=== PATIENT | female | born 1940 | race Caucasian/White ===

== ENCOUNTER → 2021-01-29 07:57 | Outpatient (CLI) | payer OTHER, SELFPAY ==
[2021-01-29 09:09] LABS: COVID19 -Nasal RAPID Negative (Negative)
--- NOTE | 2021-01-30 07:46 | DI.NM.S_ITS ---
DATE OF SERVICE: 01/29/2021 PROCEDURE PERFORMED: Exercise treadmill stress and rest myocardial perfusion imaging with gating to assess ejection fraction and regional wall motion. ORDERING PROVIDER: Dr. Dennys You. INDICATIONS: The patient is an 80-year-old female with atrial fibrillation and pacemaker with a history of chest discomfort. EXERCISE TREADMILL TESTING: The patient was able to exercise for 3 minutes and 32 seconds on a standard Duncan protocol, suggesting moderately impaired exercise capacity with an OLY of +25%. She had a normal heart rate and blood pressure response to exercise, achieving a maximum heart rate of 145 BPM (104% of her predicted maximum). She had no chest discomfort. Her resting ECG is normal with subtle ST-segment abnormalities that become slightly accentuated with stress, but remain nonspecific. There were no arrhythmias. She was in sinus rhythm throughout. At 2 minutes and 51 seconds of exercise at a heart rate of 122 BMP, 26.0 mCi of technetium-99m Myoview was injected and the patient was imaged 15 minutes later using a gated SPECT acquisition protocol. Earlier in the day at rest, she had been injected with 11.1 mCi of technetium-99m Myoview and was imaged 30 minutes later, again using a gated SPECT acquisition protocol. FINDINGS: 1. Raw data: There is fairly good myocardial tracer uptake with mild breast shadows noted. Lung/heart ratio was normal at 0.33 with a normal TID ratio of 1.00. 2. Quantitated gated SPECT: Post-stress ejection fraction is estimated at 82% without any focal wall motion abnormality and specifically the septum appears to have normal contractility. The resting ejection fraction is 86% with an end- diastolic volume of 78 mL. 3. Myocardial perfusion imaging: Post-stress supine images show a fairly normal perfusion pattern although with a small, subtle defect in the mid anterior septum that improves, although does not completely resolve, with prone imaging. There are no other perfusion defects. The resting images show an identical perfusion pattern without any areas of improvement. IMPRESSION: 1. Normal myocardial perfusion study. 2. There is a small, subtle, fixed mid septal defect that nearly resolves on prone imaging, most consistent with breast attenuation artifact. There is no compelling evidence for any myocardial ischemia or previous myocardial infarction. 3. Normal left ventricular systolic function without any focal wall motion abnormality. 4. Moderately impaired exercise capacity without angina or ECG evidence of ischemia. She was in sinus rhythm throughout. Christina Lobo - RS/dona/[place] doc#: [id number]/job#: [id number] dd: 01/29/2021 17:01:00 dt: 01/29/2021 17:40:00 DICTATING MD/COPIES TO: Guru Barrientos MD; Kimberly You MD COPIES MNE: [facility]IS;
== END ==
PROVIDERS: Referring Provider Internal Medicine Cardiovascular Disease; Visit Provider Internal Medicine Cardiovascular Disease
DX: R07.89 Other chest pain (principal); I48.91 Unspecified atrial fibrillation; I25.10 Atherosclerotic heart disease of native coronary artery without angina pectoris; Z95.0 Presence of cardiac pacemaker
CPT/HCPCS: 78452; 87635; 93017; A9502

== ENCOUNTER → 2022-08-25 09:51 | Outpatient (CLI) | payer OTHER, SELFPAY ==
--- NOTE | 2022-08-25 | DI.RAD.S_ITS ---
PROCEDURE: XR CHEST 2V INDICATIONS: CHEST PAIN TECHNIQUE: 2 views of the chest were acquired. COMPARISON: None. FINDINGS: Surgical changes and devices: Pacemaker. Lungs and pleura: Lungs are clear. No pleural effusions or pneumothorax. Mediastinum: Mediastinal contours are normal. Heart size is normal. Bones and chest wall: No suspicious bony abnormalities. Soft tissues appear unremarkable. IMPRESSION: No acute pulmonary process. Dictated by: Shannon Guerrero M.D. on 08/25/2022 at 13:07 Approved by: Shannon Guerrero M.D. on 08/25/2022 at 13:08
== END ==
PROVIDERS: PCP Family Medicine; Referring Provider Family Medicine; Visit Provider Family Medicine
DX: R07.9 Chest pain, unspecified (principal); Z95.0 Presence of cardiac pacemaker
CPT/HCPCS: 71046

== ENCOUNTER → 2022-12-22 08:46 | Outpatient (CLI) | payer OTHER, SELFPAY ==
--- NOTE | 2022-12-22 08:52 | DI.RAD.S_ITS ---
PROCEDURE: XR LUMBAR SPINE 2-3V INDICATIONS: DORSALGIA/CHEST PAIN TECHNIQUE: 3 views of the lumbar spine were acquired. COMPARISON: None. FINDINGS: Bones: 5 [id number] vertebrae are present. There is normal bony alignment. No vertebral body compression fractures. No suspicious bony lesions. Normal bone mineralization present. Degenerative disc space narrowing hypertrophic facet joints noted throughout the exam particularly lower lumbar spine associated with grade 1 anterior spondylolisthesis at L4-5 Soft tissues: Surgical clips noted in the right upper quadrant. Calcified uterine fibroid present. Atherosclerotic vascular calcification abdominal aorta present. IMPRESSION: Degenerative disc disease and arthropathy associated with grade 1 anterior spondylolisthesis at L4-5 Approved by: James Morales M.D. on 12/22/2022 at 11:45
--- NOTE | 2022-12-22 08:52 | DI.RAD.S_ITS ---
PROCEDURE: XR RIBS BI 3V INDICATIONS: DORSALGIA/CHEST PAIN TECHNIQUE: Two views each of the right and left ribs along with a single view of the chest. COMPARISON: [facility], , XR CHEST 2V, 08/25/2022, 9:57. FINDINGS: Surgical changes and devices: A cardiac pacemaker is seen with pulse generator in the left chest. Right upper quadrant cholecystectomy clips. Bones and chest wall: No acute displaced rib fracture. No suspicious bony lesions. Overlying soft tissues appear unremarkable. Degenerative changes are seen in the spine. Lungs and pleura: The visualized lung appears clear. No pleural effusions or pneumothorax are visible. IMPRESSION: No acute displaced rib fracture. No pleural effusion or pneumothorax. Approved by: Theodore Pickering M.D. on 12/22/2022 at 11:26
--- NOTE | 2022-12-22 08:52 | DI.RAD.S_ITS ---
PROCEDURE: XR THORACIC SPINE 3V INDICATIONS: DORSALGIA/CHEST PAIN TECHNIQUE: 3 views of the thoracic spine were acquired. COMPARISON: None. FINDINGS: Bones: No fractures or dislocations. No suspicious bony lesions. 12 pairs of ribs are noted, and appear intact where visualized. Disc space narrowing anterior osteophytes noted in the mid cervical spine Soft tissues: No paravertebral stripe thickening. Atherosclerotic vascular calcification noted in the aortic arch. Dual-chamber left-sided pacemaker noted IMPRESSION: Multilevel degenerative disc disease and arthropathy Approved by: James Morales M.D. on 12/22/2022 at 11:44
== END ==
PROVIDERS: PCP Family Medicine; Referring Provider Family Medicine; Visit Provider Family Medicine
DX: M51.34 Other intervertebral disc degeneration, thoracic region (principal); M47.814 Spondylosis without myelopathy or radiculopathy, thoracic region; M51.36 Other intervertebral disc degeneration, lumbar region; M47.816 Spondylosis without myelopathy or radiculopathy, lumbar region; M43.16 Spondylolisthesis, lumbar region; R07.9 Chest pain, unspecified; M54.9 Dorsalgia, unspecified
CPT/HCPCS: 71110; 72072; 72100

== ENCOUNTER → 2023-07-26 09:53 | Outpatient (CLI) | payer OTHER, SELFPAY ==
--- NOTE | 2023-07-26 | DI.RAD.S_ITS ---
PROCEDURE: XR LUMBAR SPINE 2-3V INDICATIONS: Cervicalgia TECHNIQUE: 3 views of the lumbar spine were acquired. COMPARISON: [facility], CR, XR LUMBAR SPINE 2-3V, 12/22/2022, 9:00. FINDINGS: Bones: 5 [id number] vertebrae are present. There is normal bony alignment. No vertebral body compression fractures. No suspicious bony lesions. Disc space narrowing and hypertrophic facet joints noted throughout the exam particularly upper lumbar spine. Grade 1 anterior spondylolisthesis L4-5 Soft tissues: Atherosclerotic calcification in the abdominal aorta noted without evidence of aneurysm. Surgical clips noted in the right upper quadrant. Calcified uterine fibroid IMPRESSION: Stable degenerative disc disease and arthropathy Approved by: James Morales M.D. on 07/26/2023 at 11:14
== END ==
PROVIDERS: PCP Family Medicine; Referring Provider Family Medicine; Visit Provider Family Medicine
DX: M50.30 Other cervical disc degeneration, unspecified cervical region (principal); M47.812 Spondylosis without myelopathy or radiculopathy, cervical region; D25.9 Leiomyoma of uterus, unspecified
CPT/HCPCS: 72100

== ENCOUNTER 2024-12-19 15:26 | Inpatient (IN) | payer OTHER, SELFPAY ==
[2024-12-19] VITALS (49 sets, daily range): BP systolic 92–155; BP diastolic 53–92; PULSE 83–142; RESP 12–51; TEMP 36.3–37.3; O2SAT 92–98
--- NOTE | 2024-12-19 | DI.RAD.S_ITS ---
PROCEDURE: XR CHEST 1V INDICATIONS: LEFT CHEST TUBE PLACEMENT TECHNIQUE: One view of the chest was acquired. COMPARISON: [facility], CR, XR CHEST 1V, 12/19/2024, 15:38. FINDINGS: Surgical changes and devices: Left chest tube is in place. Distal tip projects medially. Left cardiac pacemaker device. Cholecystectomy clips. Lungs and pleura: Right lung appears clear. No pleural effusion. Persistent small-moderate sized left pneumothorax. Mediastinum: Mediastinal contours appear stable. Heart size is normal. No midline shift of structures. Bones and chest wall: No suspicious bony lesions. Overlying soft tissues appear unremarkable. Left chest wall subcutaneous soft tissue emphysema. IMPRESSION: Interval placement of left thoracostomy tube with persistent small-moderate sized left pneumothorax. Dictated by: Aldo Bunn M.D. on 12/19/2024 at 18:58 Approved by: Aldo Bunn M.D. on 12/19/2024 at 19:00
--- NOTE | 2024-12-19 15:30 | DI.RAD.S_ITS ---
PROCEDURE: XR CHEST 1V INDICATIONS: chest pain TECHNIQUE: One view of the chest was acquired. COMPARISON: [facility], CR, XR CHEST 2V, 08/25/2022, 9:57. FINDINGS: Surgical changes and devices: Left chest wall pacemaker leads are in the region of right atrium and right ventricle.. Lungs and pleura: Large left-sided pneumothorax is seen measures approximately 5.1 cm in craniocaudal dimension. No pleural effusion. Right lung is clear. Mediastinum: Mediastinal contours appear normal. Heart size is normal. Bones and chest wall: No suspicious bony lesions. Overlying soft tissues appear unremarkable. IMPRESSION: Large left pneumothorax as above. Findings were reported to ordering ER physician at the time of dictation. Dictated by: Oscar Landry M.D. on 12/19/2024 at 16:14 Approved by: Oscar Landry M.D. on 12/19/2024 at 16:17
--- NOTE | 2024-12-19 15:38 | EKG_ITS ---
[facility] [address] [place] [address] Test Date: 2024-12-19 Pat Name: Christina Lobo Department: [facility] Room: Gender: Female Water Quality Analyst: LUIS F : 1940 Requested By: Order Number: [id number] Reading MD: Buster Adame Measurements Intervals [place] Rate: 122 P: NC: QRS: 38 QRSD: 78 T: 24 QT: 274 QTc: 390 Interpretive Statements Atrial fibrillation with rapid ventricular response Nonspecific ST abnormality Electronically Signed On 12-19-2024 20:04:59 PST by Buster Adame
--- NOTE | 2024-12-19 15:59 | PC.NURSE ---
patient was getting pacer interogated and went to the bathroom and beared down to have a BM. then complained of nausea. was placed back on the monitor and was found to in Afib. She is slightly nauseated.
[2024-12-19 16:07] LABS: INR 1.3 (0.9-1.3); Prothrombin Time 15.1 SECONDS (9.4-12.5)
[2024-12-19 16:10] LABS: Add Manual Diff / Slide Review NO; Basophils Absolute Auto 100 /uL (0-100); Basophils Percent Auto 0.8 % (0-2); Eosinophils Absolute Auto 100 /uL (0-450); Eosinophils Percent Auto 1.3 % (2-4); Hematocrit 41.1 % (36-46); Hemoglobin 13.7 g/dL (12.0-16.0); Lymphocytes Absolute Auto 900 /uL (1100-4500); Mean Corpuscular HGB Conc 33.4 % (30-36); Mean Corpuscular Hemoglobin 35.1 PG (26-34); Monocytes Absolute Auto 600 /uL (0-900); Monocytes Percent Auto 7.9 % (3-14); Neutrophils Absolute Auto 5700 /uL (1500-7000); PTT Partial Thromboplastin Tim 72 SECONDS (25.1-36.5); Platelet Count 287 X10^3/uL (150-400); Red Blood Cell Count 3.92 X10^6/uL (4.0-5.2); White Blood Cell Count 7.3 X10^3/uL (4.5-11.0)
[2024-12-19 16:16] LABS: Alanine Aminotransferase 32 IU/L (<35); Albumin Globulin Ratio 1.5 (1.0-2.8); Alkaline Phosphatase 71 U/L (38-126); Aspartate Aminotransferase 45 IU/L (14-36); BUN Creatinine Ratio 11.8 (6-22); Bilirubin Total 0.9 mg/dL (0.2-1.3); Blood Urea Nitrogen 11 mg/dL (7-17); Carbon Dioxide 25 mmol/L (22-32); Chloride 99 mmol/L (98-107); Creatine Kinase 81 U/L (30-135); Estimated Glomerular Filt Rate > 60 mL/min (>60); Globulin 2.7 g/dL (1.7-4.1); Glucose 126 mg/dL (80-110); HEMOLYSIS 24 (0-50); Lipase 67 U/L (23-300); Magnesium 1.6 mg/dL (1.6-2.3); Potassium 4.2 mmol/L (3.4-5.1); Sodium 131 mmol/L (137-145); Total Protein 6.7 g/dL (6.3-8.2)
--- NOTE | 2024-12-19 16:16 | ED_ITS ---
HPI - Arrhythmia/Palpitations <Gertrudis Nolan, - Last Filed: 12/24/24 00:24> General Chief Complaint: Arrhythmia/Palpitations Stated Complaint: is in Afib, brought by clinic RN Time Seen by Provider: 12/19/24 16:16 Source: patient Mode of arrival: Ambulatory History of Present Illness HPI narrative: Patient is a 84-year-old female history of atrial fibrillation on Pradaxa pacemaker presenting today with some left-sided chest pain. She was found to be in atrial fibrillation with RVR. She he is currently being treated with for pneumonia with amoxicillin and doxycycline. Her pacemaker company called her today saying that she had trouble with her pacemaker leads. She actually reports that 6 days ago she would severe left-sided chest pain. She would ambulance come she went to [facility] they did an x-ray which point she was diagnosed with a pneumonia. She denies any further chest pain Related Data Home Medications Medication Instructions Recorded Confirmed Centrum Silver Women See Rx Instructions .Route .COMPLEX 12/20/24 12/20/24 acetaminophen 325 mg tablet 1,500 mg PO BID 12/20/24 12/20/24 (Tylenol) amlodipine 10 mg tablet 10 mg DAILY 12/20/24 12/20/24 atorvastatin 40 mg tablet 40 mg DAILY 12/20/24 12/20/24 cholecalciferol (vitamin D3) 50 50 mcg PO DAILY 12/20/24 12/20/24 mcg (2,000 unit) tablet (Vitamin D3) clobetasol 0.05 % scalp solution See Rx Instructions .Route 12/20/24 12/20/24 .COMPLEX scalp dabigatran etexilate 150 mg capsule 150 mg PO BID 12/20/24 12/20/24 docusate sodium 100 mg capsule 250 mg PO BID 12/20/24 12/20/24 (Colace) famotidine 20 mg tablet 20 mg DAILY 12/20/24 12/20/24 folic acid 1 mg tablet 1 mg PO DAILY 12/20/24 12/20/24 hydralazine 50 mg tablet 50 mg 12/20/24 hydrocortisone 2.5 % lotion 1 applic topical BID PRN PSORAISIS 12/20/24 12/20/24 losartan 100 mg tablet 100 mg DAILY 12/20/24 12/20/24 melatonin 5 mg tablet 5 mg PO BEDTIME PRN SLEEP 12/20/24 12/20/24 metoprolol succinate 25 mg 25 mg PO DAILY 12/20/24 12/20/24 tablet,extended release 24 hr nitroglycerin 0.4 mg sublingual 0.4 mg sublingual Q5M PRN Chest 12/20/24 12/20/24 tablet Pain sertraline 25 mg tablet 25 mg DAILY 12/20/24 12/20/24 tramadol 50 mg tablet 50 mg PRN PRN Pain, Moderate 12/20/24 12/20/24 Allergies Allergy/AdvReac Type Severity Reaction Status Date / Time No Known Drug Allergies Allergy Verified 12/19/24 15:37 Patient History <Gertrudis Nolan DO - Last Filed: 12/24/24 00:24> Social History household members: none Smoking Status: Unknown if ever smoked Smoking Status: Unknown if ever smoked Exam <Gertrudis Nolan DO - Last Filed: 12/24/24 00:24> Initial Vital Signs Initial Vital Signs: Vital Signs Temperature 98.7 F 12/19/24 15:27 Pulse Rate 137 H 12/19/24 15:27 Respiratory Rate 25 H 12/19/24 15:27 Blood Pressure 131/92 H 12/19/24 15:27 Pulse Oximetry 93 12/19/24 15:27 Oxygen Delivery Method Room Air 12/19/24 15:27 GENERAL: Alert well-appearing pleasant 84-year-old female and in no acute distress. HEENT: Head atraumatic,EOMI, pupils reactive, face symmetric, moist mucous membranes CARDIOVASCULAR: Irregularly irregular no murmurs RESPIRATORY: No conversational dyspnea no wheezes rales or rhonchi possibly decreased breath sounds on the left side ABDOMEN: Soft, nontender. Normoactive bowel sounds all 4 quadrants. No guarding or rebound. EXTREMITIES: Normal range of motion, no clubbing or edema. Neurovascularly intact NEUROLOGICAL: Alert and oriented x4.Normal gait and speech. Cranial nerves II through XII grossly intact. SKIN: Warm, dry, no laceration, no petechiae, no rashes or lesions. <Jesica Fink MD - Last Filed: 12/20/24 03:08> Initial Vital Signs Initial Vital Signs: Vital Signs Temperature 98.7 F 12/19/24 15:27 Pulse Rate 137 H 12/19/24 15:27 Respiratory Rate 25 H 12/19/24 15:27 Blood Pressure 131/92 H 12/19/24 15:27 Pulse Oximetry 93 12/19/24 15:27 Oxygen Delivery Method Room Air 12/19/24 15:27 Procedures <Gertrudis Nolan DO - Last Filed: 12/24/24 00:24> Chest Tube Chest Tube 1: Chest Tube Location: left Size of Tube (cm): 28 Chest Tube Prep: Yes sterile drapes applied and other Local Anesthetic: lidocaine 1% and with epi Amount of anesthesia used (mL): 15 Incision Made With: #11 blade Post Procedure: sutured to skin and sterile dressing applied Tube Drainage: blood Amount of initial drainage (mL): 5 Post Procedure CXR?: Yes Patient Tolerated Procedure: Yes Complications: pain Procedural Sedation Indication: other (pneumothorax) IV Propofol dose (mg): 120 ED Sedation Level: Moderate (Concious) Patient Tolerated Procedure: Well and No complications Complications: hypoxia Interventions: Airway repositioned Course <DO Catalino Church Last Filed: 12/24/24 00:24> Orders Ordered: Discontinued Medications Acetaminophen (Acetaminophen 325 Mg Tablet) 650 mg PO Q6H PRN PRN Reason: Fever/Mild Pain (1-3) Hydrocodone Bitart/Acetaminophen (Hydrocodone/Acet 5/325 Tablet) 1 tab PO Q4H PRN PRN Reason: Pain, Moderate (4-6) Aspirin (Aspirin 81 Mg Chew Tab) 324 mg PO NOW ONE Stop: 12/19/24 15:31 Last Admin: 12/20/24 08:28 Dose: Not Given Documented By: ROBERT Hydromorphone HCl (Hydromorphone 1 Mg Inj) 1 mg IV NOW ONE Stop: 12/19/24 18:46 Last Admin: 12/19/24 18:47 Dose: 1 mg Documented By: ANGELIC Hydromorphone HCl (Hydromorphone 0.5 Mg Inj) 0.5 mg IV NOW ONE Stop: 12/19/24 20:09 Last Admin: 12/19/24 20:11 Dose: 0.5 mg Documented By: CHARLEEN Hydromorphone HCl (Hydromorphone 0.5 Mg Inj) 0.5 mg IV Q2H PRN PRN Reason: Pain, Severe (7-10) Last Admin: 12/19/24 23:40 Dose: 0.5 mg Documented By: Dextrose/Sodium Chloride (Dextrose 5%-0.45% Ns) 1,000 mls @ 100 mls/hr IV CONT SHAWN Last Admin: 12/20/24 09:04 Dose: 100 mls/hr Documented By: ROBERT Lidocaine/Epinephrine (Lidocaine 1% W/Epi 20ml) 1 ml SUBCUT NOW ONE Stop: 12/19/24 18:32 Last Admin: 12/19/24 18:34 Dose: 1 ml Documented By: ANGELIC Naloxone HCl (Naloxone 0.4 Mg/Ml Vial) 0.2 mg IV Q2MIN PRN PRN Reason: Opiate Reversal Ondansetron HCl (Ondansetron 4 Mg/2 Ml Inj) 4 mg IV Q8HR PRN PRN Reason: Nausea And Vomiting Last Admin: 12/19/24 23:40 Dose: 4 mg Documented By: Propofol (Propofol 200 Mg/20 Ml Vial) 70 mg 1 mg/kg (70 mg) IV NOW ONE Stop: 12/19/24 16:24 Last Admin: 12/19/24 18:14 Dose: 70 mg Documented By: ANGELIC Propofol (Propofol 200 Mg/20 Ml Vial) 50 mg IV NOW ONE Stop: 12/19/24 18:32 Last Admin: 12/19/24 18:32 Dose: 50 mg Documented By: ANGELIC Vital Signs Vital signs: Vital Signs - 8 hr 12/19/24 19:30 12/19/24 19:35 12/19/24 19:35 Pulse Rate 96 H 116 H Respiratory Rate 20 20 Blood Pressure 127/61 Pulse Oximetry 95 96 Oxygen Delivery Method Nasal Cannula Nasal Cannula Oxygen Flow Rate 2 2 12/19/24 19:45 12/19/24 19:45 12/19/24 20:00 Pulse Rate 92 H Respiratory Rate 17 Blood Pressure 129/58 L 135/62 Pulse Oximetry 95 Oxygen Delivery Method Nasal Cannula Oxygen Flow Rate 2 12/19/24 20:00 12/19/24 20:14 12/19/24 20:15 Pulse Rate 92 H 101 H Respiratory Rate 15 18 Blood Pressure 135/65 Pulse Oximetry 96 96 Oxygen Delivery Method Nasal Cannula Nasal Cannula Oxygen Flow Rate 2 2 12/19/24 20:15 12/19/24 20:30 12/19/24 20:30 Pulse Rate 92 H 114 H Respiratory Rate 22 12 Blood Pressure 116/58 L Pulse Oximetry 96 94 Oxygen Delivery Method Nasal Cannula Nasal Cannula Oxygen Flow Rate 2 2 12/19/24 20:45 12/19/24 20:45 12/19/24 21:00 Pulse Rate 112 H Respiratory Rate 20 Blood Pressure 127/60 136/59 L Pulse Oximetry 94 Oxygen Delivery Method Nasal Cannula Oxygen Flow Rate 2 12/19/24 21:00 12/19/24 21:15 12/19/24 21:15 Pulse Rate 124 H 91 H Respiratory Rate 14 14 Blood Pressure 134/60 Pulse Oximetry 94 94 Oxygen Delivery Method Nasal Cannula Nasal Cannula Oxygen Flow Rate 2 2 12/19/24 21:30 12/19/24 21:30 12/19/24 21:45 Pulse Rate 99 H Respiratory Rate 17 Blood Pressure 131/61 146/63 H Pulse Oximetry 93 Oxygen Delivery Method Nasal Cannula Oxygen Flow Rate 2 12/19/24 21:45 12/19/24 22:00 12/19/24 22:00 Pulse Rate 93 H 97 H Respiratory Rate 14 19 Blood Pressure 125/56 L Pulse Oximetry 93 94 Oxygen Delivery Method Nasal Cannula Nasal Cannula Oxygen Flow Rate 2 2 12/19/24 22:15 12/19/24 22:15 Pulse Rate 133 H Respiratory Rate 18 Blood Pressure 140/62 Pulse Oximetry 94 Oxygen Delivery Method Nasal Cannula Oxygen Flow Rate 2 <Jesica Fink MD - Last Filed: 12/20/24 03:08> Orders Ordered: Discontinued Medications Acetaminophen (Acetaminophen 325 Mg Tablet) 650 mg PO Q6H PRN PRN Reason: Fever/Mild Pain (1-3) Hydrocodone Bitart/Acetaminophen (Hydrocodone/Acet 5/325 Tablet) 1 tab PO Q4H PRN PRN Reason: Pain, Moderate (4-6) Aspirin (Aspirin 81 Mg Chew Tab) 324 mg PO NOW ONE Stop: 12/19/24 15:31 Last Admin: 12/20/24 08:28 Dose: Not Given Documented By: ROBERT Hydromorphone HCl (Hydromorphone 1 Mg Inj) 1 mg IV NOW ONE Stop: 12/19/24 18:46 Last Admin: 12/19/24 18:47 Dose: 1 mg Documented By: ANGELIC Hydromorphone HCl (Hydromorphone 0.5 Mg Inj) 0.5 mg IV NOW ONE Stop: 12/19/24 20:09 Last Admin: 12/19/24 20:11 Dose: 0.5 mg Documented By: CHARLEEN Hydromorphone HCl (Hydromorphone 0.5 Mg Inj) 0.5 mg IV Q2H PRN PRN Reason: Pain, Severe (7-10) Last Admin: 12/19/24 23:40 Dose: 0.5 mg Documented By: Dextrose/Sodium Chloride (Dextrose 5%-0.45% Ns) 1,000 mls @ 100 mls/hr IV CONT SHAWN Last Admin: 12/20/24 09:04 Dose: 100 mls/hr Documented By: ROBERT Lidocaine/Epinephrine (Lidocaine 1% W/Epi 20ml) 1 ml SUBCUT NOW ONE Stop: 12/19/24 18:32 Last Admin: 12/19/24 18:34 Dose: 1 ml Documented By: ANGELIC Naloxone HCl (Naloxone 0.4 Mg/Ml Vial) 0.2 mg IV Q2MIN PRN PRN Reason: Opiate Reversal Ondansetron HCl (Ondansetron 4 Mg/2 Ml Inj) 4 mg IV Q8HR PRN PRN Reason: Nausea And Vomiting Last Admin: 12/19/24 23:40 Dose: 4 mg Documented By: Propofol (Propofol 200 Mg/20 Ml Vial) 70 mg 1 mg/kg (70 mg) IV NOW ONE Stop: 12/19/24 16:24 Last Admin: 12/19/24 18:14 Dose: 70 mg Documented By: ANGELIC Propofol (Propofol 200 Mg/20 Ml Vial) 50 mg IV NOW ONE Stop: 12/19/24 18:32 Last Admin: 12/19/24 18:32 Dose: 50 mg Documented By: ANGELIC Vital Signs Vital signs: Vital Signs - 8 hr 12/19/24 19:30 12/19/24 19:35 12/19/24 19:35 Pulse Rate 96 H 116 H Respiratory Rate 20 20 Blood Pressure 127/61 Pulse Oximetry 95 96 Oxygen Delivery Method Nasal Cannula Nasal Cannula Oxygen Flow Rate 2 2 12/19/24 19:45 12/19/24 19:45 12/19/24 20:00 Pulse Rate 92 H Respiratory Rate 17 Blood Pressure 129/58 L 135/62 Pulse Oximetry 95 Oxygen Delivery Method Nasal Cannula Oxygen Flow Rate 2 12/19/24 20:00 12/19/24 20:14 12/19/24 20:15 Pulse Rate 92 H 101 H Respiratory Rate 15 18 Blood Pressure 135/65 Pulse Oximetry 96 96 Oxygen Delivery Method Nasal Cannula Nasal Cannula Oxygen Flow Rate 2 2 12/19/24 20:15 12/19/24 20:30 12/19/24 20:30 Pulse Rate 92 H 114 H Respiratory Rate 22 12 Blood Pressure 116/58 L Pulse Oximetry 96 94 Oxygen Delivery Method Nasal Cannula Nasal Cannula Oxygen Flow Rate 2 2 12/19/24 20:45 12/19/24 20:45 12/19/24 21:00 Pulse Rate 112 H Respiratory Rate 20 Blood Pressure 127/60 136/59 L Pulse Oximetry 94 Oxygen Delivery Method Nasal Cannula Oxygen Flow Rate 2 12/19/24 21:00 12/19/24 21:15 12/19/24 21:15 Pulse Rate 124 H 91 H Respiratory Rate 14 14 Blood Pressure 134/60 Pulse Oximetry 94 94 Oxygen Delivery Method Nasal Cannula Nasal Cannula Oxygen Flow Rate 2 2 12/19/24 21:30 12/19/24 21:30 12/19/24 21:45 Pulse Rate 99 H Respiratory Rate 17 Blood Pressure 131/61 146/63 H Pulse Oximetry 93 Oxygen Delivery Method Nasal Cannula Oxygen Flow Rate 2 12/19/24 21:45 12/19/24 22:00 12/19/24 22:00 Pulse Rate 93 H 97 H Respiratory Rate 14 19 Blood Pressure 125/56 L Pulse Oximetry 93 94 Oxygen Delivery Method Nasal Cannula Nasal Cannula Oxygen Flow Rate 2 2 12/19/24 22:15 12/19/24 22:15 Pulse Rate 133 H Respiratory Rate 18 Blood Pressure 140/62 Pulse Oximetry 94 Oxygen Delivery Method Nasal Cannula Oxygen Flow Rate 2 MDM - Arrhythmia/Palpitations <Gertrudis Nolan, DO - Last Filed: 12/24/24 00:24> Lab Data 12/20/24 04:57 12/20/24 04:57 Labs: Lab Results 12/19/24 Range/Units 15:53 WBC 7.3 (4.5-11.0) X10^3/uL RBC 3.92 L (4.0-5.2) X10^6/uL Hgb 13.7 (12.0-16.0) g/dL Hct 41.1 (36-46) % MCV 105.0 H (80-100) fL MCH 35.1 H (26-34) PG MCHC 33.4 (30-36) % RDW 13.0 (11.6-14.8) % Plt Count 287 (150-400) X10^3/uL Neut % (Auto) 78.0 H (50-75) % Lymph % (Auto) 12.0 L (25-40) % Green % (Auto) 7.9 (3-14) % Eos % (Auto) 1.3 L (2-4) % Baso % (Auto) 0.8 (0-2) % Neut # (Auto) 5700 (1449-3696) /uL Lymph # (Auto) 900 L (6717-7260) /uL Green # (Auto) 600 (0-900) /uL Eos # (Auto) 100 (0-450) /uL Baso # (Auto) 100 (0-100) /uL PT 15.1 H (9.4-12.5) SECONDS INR 1.3 (0.9-1.3) APTT 72 H (25.1-36.5) SECONDS Sodium 131 L (137-145) mmol/L Potassium 4.2 (3.4-5.1) mmol/L Chloride 99 (98-107) mmol/L Carbon Dioxide 25 (22-32) mmol/L BUN 11 (7-17) mg/dL Creatinine 0.93 (0.52-1.04) mg/dL Estimated GFR > 60 (>60) mL/min BUN/Creatinine Ratio 11.8 (6-22) Glucose 126 H (80-110) mg/dL Calcium 10.0 (8.4-10.2) mg/dL Magnesium 1.6 (1.6-2.3) mg/dL Total Bilirubin 0.9 (0.2-1.3) mg/dL AST 45 H (14-36) IU/L ALT 32 (<35) IU/L Alkaline Phosphatase 71 (38-126) U/L Total Creatine Kinase 81 (30-135) U/L Troponin I < 0.012 (0.01-0.034) ng/mL NT-Pro-B Natriuret Pep 489 H (<450) pg/mL Total Protein 6.7 (6.3-8.2) g/dL Albumin 4.0 (3.5-5.0) g/dL Globulin 2.7 (1.7-4.1) g/dL Albumin/Globulin Ratio 1.5 (1.0-2.8) Lipase 67 (23-300) U/L Imaging Data Chest x-ray: Radiologist's Impresson: PROCEDURE: XR CHEST 1V INDICATIONS: LEFT CHEST TUBE PLACEMENT TECHNIQUE: One view of the chest was acquired. COMPARISON: [facility], , XR CHEST 1V, 12/19/2024, 15:38. FINDINGS: Surgical changes and devices: Left chest tube is in place. Distal tip projects medially. Left cardiac pacemaker device. Cholecystectomy clips. Lungs and pleura: Right lung appears clear. No pleural effusion. Persistent small-moderate sized left pneumothorax. Mediastinum: Mediastinal contours appear stable. Heart size is normal. No midline shift of structures. Bones and chest wall: No suspicious bony lesions. Overlying soft tissues appear unremarkable. Left chest wall subcutaneous soft tissue emphysema. IMPRESSION: Interval placement of left thoracostomy tube with persistent small-moderate sized left pneumothorax. Dictated by: Aldo Bunn M.D. on 12/19/2024 at 18:58 Approved by: Aldo Bunn M.D. on 12/19/2024 at 19:00 CX2 : Radiologist's Impresson: PROCEDURE: XR CHEST 1V INDICATIONS: chest pain TECHNIQUE: One view of the chest was acquired. COMPARISON: [facility], XR CHEST 2V, 08/25/2022, 9:57. FINDINGS: Surgical changes and devices: Left chest wall pacemaker leads are in the region of right atrium and right ventricle.. Lungs and pleura: Large left-sided pneumothorax is seen measures approximately 5.1 cm in craniocaudal dimension. No pleural effusion. Right lung is clear. Mediastinum: Mediastinal contours appear normal. Heart size is normal. Bones and chest wall: No suspicious bony lesions. Overlying soft tissues appear unremarkable. IMPRESSION: Large left pneumothorax as above. Findings were reported to ordering ER physician at the time of dictation. Dictated by: Oscar Landry M.D. on 12/19/2024 at 16:14 ECG Data Attestation: I personally reviewed and interpreted this ECG as follows: Prior ECG tracings: not available for review Interpretation: Atrial fibrillation rate [address] changes MDM Narrative Medical decision making narrative: MDM CC: Pacemaker lead problems Complicating co-morbidities: Atrial fibrillation on Pradaxa Corroborating data: [ ] Data collected from: [ ] Medical records reviewed: [ ] Differential considered: [ ] Exam documented above, pertinent findings include: Alert well-appearing 84-year-old female irregular heart be mild decreased breath sounds on the left but no respiratory distress Lab Test results independently reviewed as above. Pertinent findings: WBC 7.3 hemoglobin 13.7 hematocrit 41.1 CMP electrolytes stable creatinine 0.93 Troponin negative, BNP 489 Independently reviewed EKG as above Atrial fibrillation Imaging studies independently reviewed: Chest x-ray large left pneumothorax Repeat checks x-ray chest tube in place Consultations: Dr. Luong, in ED to see patient, will consult multiple medical comorbidities need admitted by hospitalist Treatments: Dilaudid propofol Re-evaluations: After chest tube placement patient actually converted into a sinus rhythm. She was needing pain control Discussion: Patient 84-year-old female presenting today with pacemaker lead abnormality. She actually had pretty severe pain about 1 week ago she had a chest x-ray done was diagnosed with pneumonia presents today with pacemaker lead abnormality. Company actually called her and told her to be evaluated she even went to cardiology office who told her to come to the ED. she was found to have pneumothorax but is in really minimal distress. Chest tube was placed on the left side had improvement with the pneumothorax. Waiting to make sure that pacemaker leads are working, pacemaker it is intermittently having spikes patient feeling the irregularity. May need cardio evaluation. Patient signed out to Dr. Fink <Jesica Fink MD - Last Filed: 12/20/24 03:08> Lab Data Labs: Lab Results 12/19/24 Range/Units 15:53 WBC 7.3 (4.5-11.0) X10^3/uL RBC 3.92 L (4.0-5.2) X10^6/uL Hgb 13.7 (12.0-16.0) g/dL Hct 41.1 (36-46) % MCV 105.0 H (80-100) fL MCH 35.1 H (26-34) PG MCHC 33.4 (30-36) % RDW 13.0 (11.6-14.8) % Plt Count 287 (150-400) X10^3/uL Neut % (Auto) 78.0 H (50-75) % Lymph % (Auto) 12.0 L (25-40) % Green % (Auto) 7.9 (3-14) % Eos % (Auto) 1.3 L (2-4) % Baso % (Auto) 0.8 (0-2) % Neut # (Auto) 5700 (3284-3374) /uL Lymph # (Auto) 900 L (1654-6881) /uL Green # (Auto) 600 (0-900) /uL Eos # (Auto) 100 (0-450) /uL Baso # (Auto) 100 (0-100) /uL PT 15.1 H (9.4-12.5) SECONDS INR 1.3 (0.9-1.3) APTT 72 H (25.1-36.5) SECONDS Sodium 131 L (137-145) mmol/L Potassium 4.2 (3.4-5.1) mmol/L Chloride 99 (98-107) mmol/L Carbon Dioxide 25 (22-32) mmol/L BUN 11 (7-17) mg/dL Creatinine 0.93 (0.52-1.04) mg/dL Estimated GFR > 60 (>60) mL/min BUN/Creatinine Ratio 11.8 (6-22) Glucose 126 H (80-110) mg/dL Calcium 10.0 (8.4-10.2) mg/dL Magnesium 1.6 (1.6-2.3) mg/dL Total Bilirubin 0.9 (0.2-1.3) mg/dL AST 45 H (14-36) IU/L ALT 32 (<35) IU/L Alkaline Phosphatase 71 (38-126) U/L Total Creatine Kinase 81 (30-135) U/L Troponin I < 0.012 (0.01-0.034) ng/mL NT-Pro-B Natriuret Pep 489 H (<450) pg/mL Total Protein 6.7 (6.3-8.2) g/dL Albumin 4.0 (3.5-5.0) g/dL Globulin 2.7 (1.7-4.1) g/dL Albumin/Globulin Ratio 1.5 (1.0-2.8) Lipase 67 (23-300) U/L MDM Narrative Medical decision making narrative: VIKKI CC: Pacemaker lead problems Complicating co-morbidities: Atrial fibrillation on Pradaxa Corroborating data: [ ] Data collected from: [ ] Medical records reviewed: [ ] Differential considered: [ ] Exam documented above, pertinent findings include: Alert well-appearing 84-year-old female irregular heart be mild decreased breath sounds on the left but no respiratory distress Lab Test results independently reviewed as above. Pertinent findings: WBC 7.3 hemoglobin 13.7 hematocrit 41.1 CMP electrolytes stable creatinine 0.93 Troponin negative, BNP 489 Independently reviewed EKG as above Atrial fibrillation Imaging studies independently reviewed: Chest x-ray large left pneumothorax Repeat checks x-ray chest tube in place Consultations: Dr. Luong, in ED to see patient, will consult multiple medical comorbidities need admitted by hospitalist Treatments: Dilaudid propofol Re-evaluations: After chest tube placement patient actually converted into a sinus rhythm. She was needing pain control Discussion: Patient 84-year-old female presenting today with pacemaker lead abnormality. She actually had pretty severe pain about 1 week ago she had a chest x-ray done was diagnosed with pneumonia presents today with pacemaker lead abnormality. Company actually called her and told her to be evaluated she even went to cardiology office who told her to come to the ED. she was found to have pneumothorax but is in really minimal distress. Chest tube was placed on the left side had improvement with the pneumothorax. Waiting to make sure that pacemaker leads are working, pacemaker it is intermittently having spikes patient feeling the irregularity. May need cardio evaluation. Patient signed out to Dr. Aleks Fink -care of patient is signed out to me by daytime physician. Independent review of patient and chart performed by myself. Pain controlled with medications. Normal sinus rhythm. Pacer Re interrogated after chest tube placement. There is still high impedance on the right ventricle lead. Patient notified of possible need for transfer, she requested that we call her son. Patient's care discussed with son Alcides. He states that Dr. Powell of electrophysiology is aware of the impedance on the right ventricle, however electrophysiology plans to defer management of this issue until after the pneumothorax has resolved. Patient to be admitted for further treatment Discharge Plan Departure Patient Disposition: Admitted As Inpatient Clinical Impression: Pneumothorax Admit Date/Time: 12/19/24 22:19 Admit Provider: Maninder Foreman
[2024-12-19 16:27] LABS: NT-proBNP (BNP-Adult 18+) 489 pg/mL (<450); Troponin I < 0.012 ng/mL (0.01-0.034)
--- NOTE | 2024-12-19 17:10 | PC.NURSE ---
Patient was found to have a collapsed lung and was placed into room 2 with the help of a different nurse around 1600.
[2024-12-19] MEDS: propofoL 200 MG/20 ML VIAL 70 MG IV (18:14)
[2024-12-19] MEDS: propofoL 200 MG/20 ML VIAL 50 MG IV (18:32)
[2024-12-19] MEDS: LIDOCAINE 1% W/EPI 20ML SUBCUT (18:34)
[2024-12-19] MEDS: HYDROMORPHONE 1 MG INJ IV (18:47)
--- NOTE | 2024-12-19 19:08 | PC.NURSE ---
Linens changed, pt repositioned.
--- NOTE | 2024-12-19 19:14 | EKG_ITS ---
[address] [address] Test Date: 2024-12-19 Pat Name: Christina Lobo Department: Room: Gender: Female [employer]: : 1940 Requested By: Order Number: [id number] Reading MD: Buster Adame Measurements Intervals [place] Rate: 116 P: 67 ID: [id number] QRS: 41 QRSD: 74 T: 39 QT: 352 QTc: 489 Interpretive Statements Sinus tachycardia with frequent ventricular-paced complexes Biatrial enlargement Electronically Signed On 12-19-2024 20:05:11 PST by Buster Adame
--- NOTE | 2024-12-19 19:23 | PC.NURSE ---
RT at bedside for EKG.
--- NOTE | 2024-12-19 19:42 | PC.NURSE ---
Pacemaker interrogation completed, waiting for response.
[2024-12-19] MEDS: HYDROMORPHONE 0.5 MG INJ IV ×2 (20:11→23:40)
--- NOTE | 2024-12-19 20:16 | PC.NURSE ---
No change in patient condition or status. Pt resting quielty with eyes closed, resps even and not labored. No distress noted at this time. Pt rouses easily to verbal stimuli. Pt remains connected to cardiac, resp, pulse ox, blood pressure, and etco2 monitors with alarms on and audible. Call light within reach. Chest tube insertion site remains covered wtih appropriate dressing, clean, dry, and intact. No crepitus noted. Tube continues to drain scant amount of serosanguineous fluid.
--- NOTE | 2024-12-19 21:15 | PC.NURSE ---
No change in patient condition or status. Pt resting quietly with eyes closed, resps even and not labored. No distress noted at this time. Pt rouses easily to sound and states no complaints or needs at this time. Pt remains connected to cardiac, resp, blood pressure, pulse ox, and etco2 monitors with alarms on and audible. Call light within reach. Chest tube insertion site remains cover with dressing, clean dry, and intact. Chest tube continues to drain scant amount of serosanguinous fluid.
--- NOTE | 2024-12-19 22:19 | PC.NURSE ---
No change in patient condition or status. Pt sitting in ED stretcher speaking with Dr. Fink. No distress noted at this time. Pt remains connected yuriy cardiac, resp, blood pressure, pulse ox, and etco2 monitors with alarms on and audible. Call light within reach. Chest tube insertion site remains covered by dressing, clean, dry, adn intact. Chest tube continues to drain scant amount of serosanguineous fluid with clots.
--- NOTE | 2024-12-19 22:19 | PC.NURSE ---
No change in patient condition or status. Pt lying in ED stretcher speaking with Dr. Fink at this time. No distress noted at this time. Pt remians connected to cardiac, resp, blood pressure, pulse ox, and etco2 monitors with alarms on and audible. Call light within reach. Chest tube insertion site remains covered by dressing, clean, dry, and intact. Chest y
[2024-12-19] MEDS: ONDANSETRON 4 MG/2 ML INJ IV (23:40)
--- NOTE | 2024-12-20 | DI.RAD.S_ITS ---
PROCEDURE: XR CHEST 1V INDICATIONS: pneumothorax with chest tube TECHNIQUE: One view of the chest was acquired. COMPARISON: [facility], CR, XR RIBS BI 3V, 12/22/2022, 9:00. [facility], CR, XR CHEST 1V, 12/19/2024, 15:38. [facility], CR, XR CHEST 2V, 08/25/2022, 9:57. [facility], CR, XR CHEST 1V, 12/19/2024, 18:19. FINDINGS: Surgical changes and devices: Pacemaker, chest tube. The pacemaker wire tip appears to be potentially outside of the ventricle, in the left hemithorax. This is the same of is yesterday's study, but different from 08/25/2022 study. Lungs and pleura: Unchanged left pneumothorax. Left chest tube in place. Patchy left basilar atelectasis. Mediastinum: Mediastinal contours appear normal. Heart size is normal. Bones and chest wall: No suspicious bony lesions. Subcutaneous emphysema. IMPRESSION: 1. Interval placement of a chest tube. Continued left pneumothorax. 2. Unchanged appearance of pacemaker, with pacemaker lead potentially outside of the ventricle. Comment: Findings were discussed with Dr. Ward, the hospitalist caring for the patient on 12/20/2024 at 0819 hours. He was already aware of this finding. Dictated by: Jaguar Morley M.D. on 12/20/2024 at 8:04 Approved by: Jaguar Morley M.D. on 12/20/2024 at 8:21
--- NOTE | 2024-12-20 04:42 | PM.HP.1 ---
History of Present Illness History of Present Illness Chief complaint: is in Afib, brought by clinic RN Narrative: 84 year old female with past medical history of Afib on Pradaxa and s/p pacemaker presents with left sided chest pain. Of note, the patient recently was diagnosed with pneumonia about 6 days ago and is being treated with Amoxicillin and Doxyclycine. Today, the pacemaker complany called her and states that there was some problem with her pacemaker leads. The patient went to her Career Coordinator clinic who adviced that she come to our ER for further evaluation. When the patient arrive to our ER, the patient was hemodynamically stable though was still having some left sided chest pain. Chest imaging shows large left sided pneumothorax. Our ER physician placed a left sided chest tube and repeat CXR which shows improvement of pneumothorax to small/moderate size. General surgeon was also contacted to help manage the chest tube if the patient was to be admitted here. Our ER physician, Dr. Fink also called and discussd with the patient's care. The patient son states that Dr. Powell from Electrophysiology is aware of the impedance of the right ventricle but states that he would defer management of this issues until the pneumothorax has resolved. Per EP, the patient can be manage here and does not need to be transfer. IV Pain medications were also given. Patient was requiring 2-3L of O2 per NC. Large left sided spontaneous pneumothorax s/p left sided chest tube placement. Admit the patient to medical telemetry. General surgery was consulted and will help manage chest tube. Will need to repeat CXR in AM. IV pain control prn. Monitor hemodynamics and respiratory status closely. [facility] Social History Smoking Status: Unknown if ever smoked Meds Home Medications and Allergies Allergies Allergy/AdvReac Type Severity Reaction Status Date / Time No Known Drug Allergies Allergy Verified 12/19/24 15:37 Review of Systems Review of Systems ROS: Yes All systems reviewed with the patient and are negative except as otherwise documented Exam Vital Signs (past 8 hours): - 12/19/24 20:45 12/19/24 20:45 12/19/24 21:00 Temperature Pulse Rate 112 H Respiratory Rate 20 Blood Pressure 127/60 136/59 L Pulse Oximetry 94 Oxygen Delivery Method Nasal Cannula Oxygen Flow Rate 2 12/19/24 21:00 12/19/24 21:15 12/19/24 21:15 Temperature Pulse Rate 124 H 91 H Respiratory Rate 14 14 Blood Pressure 134/60 Pulse Oximetry 94 94 Oxygen Delivery Method Nasal Cannula Nasal Cannula Oxygen Flow Rate 2 2 12/19/24 21:30 12/19/24 21:30 12/19/24 21:45 Temperature Pulse Rate 99 H Respiratory Rate 17 Blood Pressure 131/61 146/63 H Pulse Oximetry 93 Oxygen Delivery Method Nasal Cannula Oxygen Flow Rate 2 12/19/24 21:45 12/19/24 22:00 12/19/24 22:00 Temperature Pulse Rate 93 H 97 H Respiratory Rate 14 19 Blood Pressure 125/56 L Pulse Oximetry 93 94 Oxygen Delivery Method Nasal Cannula Nasal Cannula Oxygen Flow Rate 2 2 12/19/24 22:15 12/19/24 22:15 12/19/24 22:22 Temperature Pulse Rate 133 H Respiratory Rate 18 Blood Pressure 140/62 Pulse Oximetry 94 Oxygen Delivery Method Nasal Cannula Nasal Cannula Oxygen Flow Rate 2 12/19/24 22:56 Temperature 97.3 F L Pulse Rate 83 Respiratory Rate 20 Blood Pressure 133/55 L Pulse Oximetry 94 Oxygen Delivery Method Oxygen Flow Rate 2 Oxygen Delivery Method Nasal Cannula Oxygen Flow Rate 2 Narrative Exam Narrative: Physical Exam: GENERAL: The patient is not in any acute distressed. Awake and alert. HEENT: Nonicteric sclerae, PERRLA, EOMI. Oropharynx clear. Moist mucous membranes. Conjunctivae appear well perfused. HEART: Regular rate and rhythm without murmurs. No lower extremities edema. LUNGS: Decreased breath sounds in left lung field otherwise Clear to auscultation bilaterally. No wheezing, crackles or rhonchi ABDOMEN: Soft, positive bowel sounds, nontender. SKIN: No rash, no excessive bruising, petechiae, or purpura. NEUROLOGIC: AxO x 3. Cranial nerves II-XII intact without motor/sensory deficit. Objective Labs 12/19/24 15:53 12/19/24 15:53 Labs: Laboratory Results - last 24 hr 12/19/24 15:53 WBC 7.3 RBC 3.92 L Hgb 13.7 Hct 41.1 MCV 105.0 H MCH 35.1 H MCHC 33.4 RDW 13.0 Plt Count 287 Neut % (Auto) 78.0 H Lymph % (Auto) 12.0 L [place] % (Auto) 7.9 Eos % (Auto) 1.3 L Baso % (Auto) 0.8 Neut # (Auto) 5700 Lymph # (Auto) 900 L [place] # (Auto) 600 Eos # (Auto) 100 Baso # (Auto) 100 PT 15.1 H INR 1.3 APTT 72 H Sodium 131 L Potassium 4.2 Chloride 99 Carbon Dioxide 25 BUN 11 Creatinine 0.93 Estimated GFR > 60 BUN/Creatinine Ratio 11.8 Glucose 126 H Calcium 10.0 Magnesium 1.6 Total Bilirubin 0.9 AST 45 H ALT 32 Alkaline Phosphatase 71 Total Creatine Kinase 81 Troponin I < 0.012 NT-Pro-B Natriuret Pep 489 H Total Protein 6.7 Albumin 4.0 Globulin 2.7 Albumin/Globulin Ratio 1.5 Lipase 67 Assessment & Plan Assessment & Plan narrative: Afib on Pradaxa and s/p pacemaker. Note, problem with patient's pacer leads. Our ER physician, Dr. Fink also called and discussd with the patient's care. The patient son states that Dr. Powell from Electrophysiology is aware of the impedance of the right ventricle but states that he would defer management of this issues until the pneumothorax has resolved. Per EP, the patient can be manage here and does not need to be transfer. Can resume Pradaxa once cleared by general surgery in regards to chest tube. Hyponatremia. Mild. Encourage PO intake of fluid as likely from dehydration. Sodium 131. DVT PPx SCDs for now Code status full code Disposition home in 2-3 days Time-Based Coding :: [TOTAL MINUTES] spent with patient and on the chart (including review of chart, obtaining history, exam, reviewing outside data, placing orders, documenting exam and treatment plan, and counseling patient) on [DATE].
[2024-12-20 05:00] VITALS: BP 124/57; PULSE 81; RESP 18; TEMP 36.4; O2SAT 96
[2024-12-20 05:38] LABS: Add Manual Diff / Slide Review NO; Basophils Absolute Auto 0 /uL (0-100); Basophils Percent Auto 0.2 % (0-2); Eosinophils Absolute Auto 0 /uL (0-450); Eosinophils Percent Auto 0.4 % (2-4); Hematocrit 42.5 % (36-46); Hemoglobin 14.4 g/dL (12.0-16.0); Lymphocytes Absolute Auto 500 /uL (1100-4500); Lymphocytes Percent Auto 5.2 % (25-40); Mean Corpuscular HGB Conc 33.9 % (30-36); Mean Corpuscular Hemoglobin 36.2 PG (26-34); Mean Corpuscular Volume 106.8 fL (80-100); Monocytes Absolute Auto 900 /uL (0-900); Monocytes Percent Auto 9.5 % (3-14); Neutrophils Absolute Auto 8100 /uL (1500-7000); Neutrophils Percent Auto 84.7 % (50-75); Platelet Count 295 X10^3/uL (150-400); Red Blood Cell Count 3.98 X10^6/uL (4.0-5.2); White Blood Cell Count 9.5 X10^3/uL (4.5-11.0)
[2024-12-20 08:43] LABS: BUN Creatinine Ratio 11.3 (6-22); Blood Urea Nitrogen 17 mg/dL (7-17); Calcium 9.6 mg/dL (8.4-10.2); Carbon Dioxide 22 mmol/L (22-32); Chloride 102 mmol/L (98-107); Estimated Glomerular Filt Rate 34 mL/min (>60); Glucose 139 mg/dL (80-110); HEMOLYSIS < 15 (0-50); Potassium 4.9 mmol/L (3.4-5.1); Sodium 134 mmol/L (137-145)
[2024-12-20] MEDS: DEXTROSE 5%-0.45% NS 1,000 ML 100 ML IV (09:04)
[2024-12-20 09:17] VITALS: BP 133/55; PULSE 79; RESP 19; TEMP 36.2; O2SAT 95
[2024-12-20 09:34] VITALS: O2SAT 95
--- NOTE | 2024-12-20 10:57 | OT.IPNOTE ---
Discussed patient in rounds. Pt is planned for transfer to another hospital and is currently awaiting intervention of pacer. Will discharge orders.
--- NOTE | 2024-12-20 10:58 | PT-IP ANOTE ---
PT eval order received. EMR reviewed. per hospitalist during rounds meeting: d/c PT eval order. pt not appropriate for PT at this time.
--- NOTE | 2024-12-20 11:55 | CM.DANOTE ---
DCP Assessment Note: Pt is a 84yo female, resident of [place], is admitted for pneumothorax caused by a misplaced pacemaker. Pt lives in an apartment complex, her son lives on [facility] as well. Pt's Primary Care Provider is Dr. Russell Davenport and insurance is [facility]. Reviewed chart and discussed with multidisciplinary team pt's medical status and initial discharge needs. DCP met w/patient at bedside; introduced self and role. Patient was found in bed, alert and oriented, cooperative with assessment. Pt confirmed living situation and good support in son; also independent at baseline. Pt verbalized understanding of plans to transfer to higher level of care, states she obtained her pacemaker approximately 5 years ago at [facility]. No needs reported by patient at this time. Plan: Pt to transfer to higher level of care per pt real estate manager and hospitalist. CM team will follow closely for coordination of discharge plans. Kateryna Harper [facility] Discharge Planning/Care Management CM Discharge Assessment Start: 12/20/24 11:53 Freq: Status: Active Protocol: Document 12/20/24 11:53 MW (Rec: 12/20/24 11:55 MW [id number]) Discharge Planning Assessment Assigned Boat Motor Mechanic ALBINA Avendaño DPOA/Assigned Designee Name Italo Tapia Contact Information [phone] Advance Directives? No History Provided By Patient Prior Living Arrangements Apartment/Condo Comment [facility] Household Members none Type of transporation used prior to Public Transportation admit Independent with ADL's Yes Is patient alert and oriented? Yes DME Already Rented / Owned Cane Discharge Plan Transfer to Higher Level of Care Referrals Initiated None needed Review Status In Process Please Provide Date Initial DC 12/20/24 Assessment Was Performed Next Review Type Continued Stay Review
[2024-12-20 13:00] VITALS: BP 129/69; PULSE 114; RESP 19; TEMP 36.5; O2SAT 97
--- NOTE | 2024-12-20 15:51 | DI.RAD.S_ITS ---
PROCEDURE: XR CHEST 1V INDICATIONS: concerning cough. has chest tube in place TECHNIQUE: One view of the chest was acquired. COMPARISON: [facility], CR, XR CHEST 1V, 12/20/2024, 7:34. FINDINGS: Surgical changes and devices: Previously identified location of pacemaker wire is unchanged, appearing to be extraventricular. Left chest tube is unchanged. Lungs and pleura: Slightly less prominent appearance of left pneumothorax. Mediastinum: Mediastinal contours appear normal. Heart size is normal. Bones and chest wall: No suspicious bony lesions. Overlying soft tissues appear unremarkable. IMPRESSION: Slightly less prominent appearance of left pneumothorax. Dictated by: Shannon Guerrero M.D. on 12/20/2024 at 16:57 Approved by: Shannon Guerrero M.D. on 12/20/2024 at 16:59
--- NOTE | 2024-12-20 16:06 | PM.DS.IH.1 ---
History of Present Illness History of Present Illness Date Patient Seen: 12/20/24 Time Patient Seen: 08:20 Date of Onset of Symptoms: 12/19/24 Chief complaint: is in Afib, brought by clinic RN Narrative: 84 year old female with past medical history of Afib on Pradaxa and s/p pacemaker presents with left sided chest pain. Of note, the patient recently was diagnosed with pneumonia about 6 days ago and is being treated with Amoxicillin and Doxyclycine. Today, the pacemaker complany called her and states that there was some problem with her pacemaker leads. The patient went to her Residential Caregiver clinic who adviced that she come to our ER for further evaluation. When the patient arrive to our ER, the patient was hemodynamically stable though was still having some left sided chest pain. Chest imaging shows large left sided pneumothorax. Our ER physician placed a left sided chest tube and repeat CXR which shows improvement of pneumothorax to small/moderate size. General surgeon was also contacted to help manage the chest tube if the patient was to be admitted here. Our ER physician, Dr. Fink also called and discussd with the patient's care. The patient son states that Dr. Powell from Electrophysiology is aware of the impedance of the right ventricle but states that he would defer management of this issues until the pneumothorax has resolved. Per EP, the patient can be manage here and does not need to be transfer. IV Pain medications were also given. Patient was requiring 2-3L of O2 per NC. Large left sided spontaneous pneumothorax s/p left sided chest tube placement. Admit the patient to medical telemetry. General surgery was consulted and will help manage chest tube. Will need to repeat CXR in AM. IV pain control prn. Monitor hemodynamics and respiratory status closely. Discharge Providers Provider Date of admission: 12/19/24 22:19 Discharge Date: 12/20/24 Primary care physician: Russell Davenport MD Consults: 12/19/24 22:12 Consult to Occupational Therapy Evaluate & Treat Comment: Physician Instructions: Evaluate and treat Consult to Physical Therapy Evaluate & Treat Comment: Physician Instructions: Evaluate and Treat Discharge provider: aCsa Ward MD Summary Hospital Course Discharge Diagnosis: 1. 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 Pneumothorax due to 1, status post chest tube placement. 3. Hyponatremia 4. Paroxysmal atrial fibrillation 5. Chronic anticoagulation 6. Hypertension 7. Hyperlipidemia Hospital Course: The patient was admitted to the medical floor and monitored on telemetry. She had a brief recurrent episode of paroxysmal atrial fibrillation but otherwise remained hemodynamically stable throughout the hospitalization. She was noted to have left pectoralis and are muscle twitching in synchrony with her pacemaker. The pacemaker was deactivated. It was apparent on radiologic imaging that the right ventricular lead placed at [facility] in 1999 had some how perforated the right ventricle and was several cm laterally displaced into the chest wall cavity and had likely caused her pneumothorax, without a trauma history or other in apparent precipitating factor. She had been diagnosed with pneumonia prior to admission but this diagnosis was in some question given lack of suggestive symptoms otherwise. Urgent transfer to a tertiary level facility for further management and care was arranged expeditiously. Status at Discharge Cognitive/behavioral status at discharge: oriented Functional status at discharge: bed bound Overall status at discharge: patient is not back to baseline Time Spent with Patient Time spent: Greater than 30 minutes Exam Vital Signs (past 8 hours): - 12/20/24 09:17 12/20/24 09:34 12/20/24 13:00 Temperature 97.2 F L 97.7 F Pulse Rate 79 114 H Respiratory Rate 19 19 Blood Pressure 133/55 L 129/69 Pulse Oximetry 95 95 97 Oxygen Delivery Method Nasal Cannula Oxygen Flow Rate 2 2 2 Oxygen Delivery Method Nasal Cannula Oxygen Flow Rate 2 Narrative Exam Narrative: GENERAL: This is a well-nourished, well-developed patient, in no apparent distress. Left arm and pectoralis twitching at pulse rate. HEAD: Atraumatic. Normocephalic. No temporal or scalp tenderness. EYES: Pupils equal round and reactive. Extraocular motions intact. No scleral icterus. No injection or drainage. ENT: Mucous membranes pink and moist. NECK: Trachea midline. No JVD, bruits or lymphadenopathy. Supple, nontender, no meningeal signs. CARDIOVASCULAR: Regular rate and rhythm without murmurs, gallops, or rubs. RESPIRATORY: Clear to auscultation. Left chest tube in place. GASTROINTESTINAL: Abdomen soft, non-tender, nondistended. EXTREMITIES: No clubbing, cyanosis, or edema. BACK: Nontender without deformity or crepitance. No flank tenderness. NEUROLOGIC: Alert, oriented, speech fluent, full upper and lower motor strength, no focal deficits evident. DERMATOLOGIC: No rashes or skin lesions. Objective ECG Impression: Sinus tachycardia at 116bpm with frequent ventricular-paced complexes Biatrial enlargement Imaging *: Radiologist's impression: 1. Chest xray Large left pneumothorax as above. 2. Chest xray Interval placement of left thoracostomy tube with persistent small-moderate sized left pneumothorax. 3. Chest xray 1. Interval placement of a chest tube. Continued left pneumothorax. 2. Unchanged appearance of pacemaker, with pacemaker lead potentially outside of the ventricle. Labs 12/20/24 04:57 12/20/24 04:57 Labs: Laboratory Results - last 24 hr 12/19/24 12/20/24 15:53 04:57 WBC 7.3 9.5 RBC 3.92 L 3.98 L Hgb 13.7 14.4 Hct 41.1 42.5 MCV 105.0 H 106.8 H MCH 35.1 H 36.2 H MCHC 33.4 33.9 RDW 13.0 13.0 Plt Count 287 295 Neut % (Auto) 78.0 H 84.7 H Lymph % (Auto) 12.0 L 5.2 L [place] % (Auto) 7.9 9.5 Eos % (Auto) 1.3 L 0.4 L Baso % (Auto) 0.8 0.2 Neut # (Auto) 5700 8100 H Lymph # (Auto) 900 L 500 L [place] # (Auto) 600 900 Eos # (Auto) 100 0 Baso # (Auto) 100 0 PT 15.1 H INR 1.3 APTT 72 H Sodium 131 L 134 L Potassium 4.2 4.9 Chloride 99 102 Carbon Dioxide 25 22 BUN 11 17 Creatinine 0.93 1.50 H Estimated GFR > 60 34 L BUN/Creatinine Ratio 11.8 11.3 Glucose 126 H 139 H Calcium 10.0 9.6 Magnesium 1.6 Total Bilirubin 0.9 AST 45 H ALT 32 Alkaline Phosphatase 71 Total Creatine Kinase 81 Troponin I < 0.012 NT-Pro-B Natriuret Pep 489 H Total Protein 6.7 Albumin 4.0 Globulin 2.7 Albumin/Globulin Ratio 1.5 Lipase 67 PFSH Social History household members: none Smoking Status: Unknown if ever smoked Discharge Plan Discharge Plan Patient Disposition: [facility] Provider Discharge Comment: Transfer to [facility] under the care Dr. Reyes Visit Report/Discharge Packet Stand Alone Forms: Stroke Signs & Symptoms Discharge Data Primary Care Provider: Russell Davenport MIPS - Admit I confirm the patient?s Advance Care Plan is present, Code status is documented, Surrogate decision maker is in patient?s record [If Yes, STOP here]: Yes MIPS - Meds 'Current medications' to include all prescriptions, [id number] products, herbals, cannabis/cannabidiol products, and vitamin/mineral/dietary (nutritional) supplements. I have utilized all available resources to obtain, update, or review the patient?s current medications. [If Yes, STOP here]: Yes MIPS - DC The patient has a history of heart transplant or Left Ventricular Assist Device (LVAD). If yes, STOP here.: No The patient has current or prior documentation of left ventricular ejection fraction (LVEF) less than or equal to 40%, or moderate or severely depressed left ventricular systolic function.: No A. The patient was prescribed or already taking an Angiotensin-Converting Enzyme (SILVER) Inhibitor, or Angiotensin Receptor Gm (ARB).: No B. The patient was prescribed or already taking a beta-gm. [If Yes to Both A & B, STOP here]: No Patient not prescribed/taking SILVER or ARB, no reason given.: No Patient not prescribed/taking beta-gm, no reason given.: No [facility] PROFEE Charge Codes Discharge inpatient/observation: [id number]
--- NOTE | 2024-12-20 17:57 | PC.NURSE ---
Addendum entered by Jose Daniel Isaacs R.N. 12/20/24 18:23: report given to RN at approx 1815. Original Note: Day shift: Left unit via ALS at approx 1800. Going to [facility]. ALS transport team has packet. Report given to them as well and all questions answered. Chest tube remains patent with approx 125ml serosanguinous output today on day shift. Report given to Laila SOOD by BARRIE Moscoso at approx 08
== END 2024-12-20 18:24 | disposition short-term general hospital (02) | DRG 200 ==
LOC: ED 19:27 → AC 22:20
PROVIDERS: Admitting Provider Internal Medicine; Emergency Provider Emergency Medicine; PCP Family Medicine; Referring Provider Emergency Medicine; Visit Provider Internal Medicine
DX: J93.9 Pneumothorax, unspecified (principal); E87.1 Hypo-osmolality and hyponatremia; T82.190A Other mechanical complication of cardiac electrode, initial encounter; I48.0 Paroxysmal atrial fibrillation; I10 Essential (primary) hypertension; E78.5 Hyperlipidemia, unspecified; Y71.2 Prosthetic and other implants, materials and accessory cardiovascular devices associated with adverse incidents; Z79.01 Long term (current) use of anticoagulants; Z95.0 Presence of cardiac pacemaker
CPT/HCPCS: 32551; 36415; 71045; 80048; 80053; 82550; 83690; 83735; 83880; 84484; 85025; 85610; 85730; 93005; 94762; 96374; 96376; 99152; 99285; 99291; J1171; J2405; J2704